=== PATIENT | male | born 1990 | race Caucasian/White ===

== ENCOUNTER 2017-01-10 00:12 | Emergency (ER) | payer OTHER ==
[2017-01-10 00:14] VITALS: BP 123/84; PULSE 78; RESP 16; TEMP 98.4; O2SAT 98
[2017-01-10] MEDS ORDERED: ADDE30TA PO (00:44)
[2017-01-10] MEDS ORDERED: ADDE30XR PO (00:44)
--- NOTE | 2017-01-10 01:02 | PD ---
HPI Chief Complaint: Medical Clearance Time Seen by Provider: 01:01 Travel History International Travel<30 days: No Contact w/Intl Traveler<30days: No Traveled to known affect area: No History of Present Illness HPI 26-year-old white male presents from [facility] for medical clearance for detox. The patient states that he has chronic groin pain from a service related injury. He has undergone orchiopexy. He states that he has distanced himself from the [facility] over the past year. He self medicates his pain with by mouth oxycodone and IV Dilaudid. He also states that he takes Xanax for anxiety. He states that all these medications are purchased off the street. He states that he would like to get into detox for his Xanax abuse. He denies any fever chills. No nausea vomiting. No abdominal pain but has chronic groin pain. He denies any suicidal homicidal ideation. There were no beds available at [facility] and he was waiting for a bed to become available when he opted to come in because he just did not feel well. Patient denies any toxic ingestions. [facility] Past Medical History Narrative Medical Chronic groin pain, IV substance abuse, polysubstance abuse ADHD: Yes Immunizations Current: Yes Tetanus Vaccination: < 5 Years Influenza Vaccination: Yes Past Surgical History Narrative Surgical Orchiopexy Genitourinary Surgery: Yes (DIVISIONS OF RIGHT CREMASTER MUSCLE, RIGHT TESTEE SEWED TO SCROTUM) Social History Alcohol Use: Yes (RARE) Tobacco Use: Yes Substance Use: Yes (OXYCODONE, HYDROMORPHONE, ALPRAZOLAM) Allergies-Medications (Allergen,Severity, Reaction): Coded Allergies: No Known Allergies (Unverified , 01/10/17) Reported Meds & Prescriptions Reported Meds & Active Scripts Active Reported Adderall Xr 24 HR (Amphetamine/Dextroamphetamine) 30 Mg Cap 30 Mg PO DAILY Once daily in the morning. Adderall (Amphetamine-Dextroamphetamine) 30 Mg Tab 30 Mg PO BID Avoid late evening doses. Space doses at least 4 to 6 hours if more than once/day dosing. Review of Systems Except as stated in HPI: all other systems reviewed are Neg Physical Exam Narrative GENERAL: Well-nourished, well-developed patient. SKIN: Warm and dry. HEAD: Normocephalic and atraumatic. EYES: No scleral icterus. No injection or drainage. ENT: No nasal drainage noted. Mucous membranes pink. Airway patent. NECK: Supple, trachea midline. Moves head freely without obvious discomfort. CARDIOVASCULAR: Regular rate and rhythm without murmurs, gallops, or rubs. RESPIRATORY: Breath sounds equal bilaterally. No accessory muscle use. GASTROINTESTINAL: Abdomen soft, non-tender, nondistended. EXTREMITIES: No cyanosis or edema. BACK: Nontender without obvious deformity. No CVA tenderness. GENITOURINARY: Circumcised. Testes descended bilaterally without evidence of rotation. No lesions or erythema. No urethral discharge. NEURO: Patient is alert and oriented. no sensorimotor deficits. Nonfocal. Normal speech. PSYCH: No delusions. No auditory or visual hallucinations. Data Data Last Documented VS Vital Signs Date Time Temp Pulse Resp B/P Pulse Ox O2 Delivery O2 Flow Rate FiO2 01/10/17 00:14 98.4 78 16 123/84 98 Orders Complete Blood Count With Diff (01/10/17 00:34) Comprehensive Metabolic Panel (01/10/17 00:34) Psych Screen (01/10/17 00:34) Drug Screen, Random Urine (01/10/17 00:34) Alcohol (Ethanol) (01/10/17 00:34) Labs Laboratory Tests Test 01/10/17 01:00 White Blood Count 4.8 TH/MM3 Red Blood Count 5.01 MIL/MM3 Hemoglobin 14.4 GM/DL Hematocrit 41.1 % Mean Corpuscular Volume 82.0 FL Mean Corpuscular Hemoglobin 28.8 PG Mean Corpuscular Hemoglobin 35.1 % Concent Red Cell Distribution Width 13.3 % Platelet Count 199 TH/MM3 Mean Platelet Volume 8.1 FL Neutrophils (%) (Auto) 36.6 % Lymphocytes (%) (Auto) 49.0 % Monocytes (%) (Auto) 10.1 % Eosinophils (%) (Auto) 3.6 % Basophils (%) (Auto) 0.7 % Neutrophils # (Auto) 1.8 TH/MM3 Lymphocytes # (Auto) 2.4 TH/MM3 Monocytes # (Auto) 0.5 TH/MM3 Eosinophils # (Auto) 0.2 TH/MM3 Basophils # (Auto) 0.0 TH/MM3 CBC Comment DIFF FINAL Differential Comment Sodium Level 142 MEQ/L Potassium Level 4.0 MEQ/L Chloride Level 105 MEQ/L Carbon Dioxide Level 33.7 MEQ/L Anion Gap 3 MEQ/L Blood Urea Nitrogen 8 MG/DL Creatinine 0.83 MG/DL Estimat Glomerular Filtration 111 ML/MIN Rate Random Glucose 79 MG/DL Calcium Level 8.7 MG/DL Total Bilirubin 0.7 MG/DL Aspartate Amino Transf 67 U/L (AST/SGOT) Alanine Aminotransferase 90 U/L (ALT/SGPT) Alkaline Phosphatase 74 U/L Total Protein 7.5 GM/DL Albumin 3.9 GM/DL Urine Opiates Screen POS Urine Barbiturates Screen NEG Urine Amphetamines Screen POS Urine Benzodiazepines Screen POS Urine Cocaine Screen POS Urine Cannabinoids Screen NEG Ethyl Alcohol Level LESS THAN 3 MG/DL MDM Medical Decision Making Medical Screen Exam Complete: Yes Emergency Medical Condition: Yes Medical Record Reviewed: Yes Interpretation(s) Laboratory Tests Test 01/10/17 01:00 White Blood Count 4.8 TH/MM3 Red Blood Count 5.01 MIL/MM3 Hemoglobin 14.4 GM/DL Hematocrit 41.1 % Mean Corpuscular Volume 82.0 FL Mean Corpuscular Hemoglobin 28.8 PG Mean Corpuscular Hemoglobin 35.1 % Concent Red Cell Distribution Width 13.3 % Platelet Count 199 TH/MM3 Mean Platelet Volume 8.1 FL Neutrophils (%) (Auto) 36.6 % Lymphocytes (%) (Auto) 49.0 % Monocytes (%) (Auto) 10.1 % Eosinophils (%) (Auto) 3.6 % Basophils (%) (Auto) 0.7 % Neutrophils # (Auto) 1.8 TH/MM3 Lymphocytes # (Auto) 2.4 TH/MM3 Monocytes # (Auto) 0.5 TH/MM3 Eosinophils # (Auto) 0.2 TH/MM3 Basophils # (Auto) 0.0 TH/MM3 CBC Comment DIFF FINAL Differential Comment Sodium Level 142 MEQ/L Potassium Level 4.0 MEQ/L Chloride Level 105 MEQ/L Carbon Dioxide Level 33.7 MEQ/L Anion Gap 3 MEQ/L Blood Urea Nitrogen 8 MG/DL Creatinine 0.83 MG/DL Estimat Glomerular Filtration 111 ML/MIN Rate Random Glucose 79 MG/DL Calcium Level 8.7 MG/DL Total Bilirubin 0.7 MG/DL Aspartate Amino Transf 67 U/L (AST/SGOT) Alanine Aminotransferase 90 U/L (ALT/SGPT) Alkaline Phosphatase 74 U/L Total Protein 7.5 GM/DL Albumin 3.9 GM/DL Urine Opiates Screen POS Urine Barbiturates Screen NEG Urine Amphetamines Screen POS Urine Benzodiazepines Screen POS Urine Cocaine Screen POS Urine Cannabinoids Screen NEG Ethyl Alcohol Level LESS THAN 3 MG/DL Differential Diagnosis Differential diagnoses: Alcohol intoxication, substance abuse, electrolyte abnormality, malingering Narrative Course I see no emergent medical condition. The patient is here for medical clearance for detox. There are no beds at [facility]. We will attempt to arrange follow-up for detox with another facility. Diagnosis Primary Impression: Polysubstance abuse Additional Impression: Chronic groin pain Qualified Code: R10.30 - Chronic groin pain, unspecified laterality Condition: Stable Eliezer Suarez Jan 10, 2017 01:02
[2017-01-10 01:15] LABS: AUTOMATED NEUTROPHIL # 1.8 TH/MM3 (1.8-7.7); BASOPHIL % 0.7 % (0.0-2.0); EOSINOPHIL # 0.2 TH/MM3 (0-0.4); EOSINOPHIL % 3.6 % (0.0-4.0); HEMATOCRIT 41.1 % (39.0-51.0); HEMO FLAGS DIFF FINAL; LYMPHOCYTE # 2.4 TH/MM3 (1.0-4.8); MEAN CORPUSCULAR HEMOGLOBIN 28.8 PG (27.0-34.0); MEAN CORPUSCULAR HGB CONC 35.1 % (32.0-36.0); MONO % 10.1 % (0.0-8.0); NEUT % 36.6 % (16.0-70.0); PLATELET COUNT 199 TH/MM3 (150-450); RED BLOOD COUNT 5.01 MIL/MM3 (4.50-5.90); RED CELL DISTRIBUTION WIDTH 13.3 % (11.6-17.2); WHITE BLOOD COUNT 4.8 TH/MM3 (4.0-11.0)
[2017-01-10 01:25] LABS: AMPHETAMINE, URINE POS (NEG); BARBITURATES, URINE NEG (NEG); COCAINE, URINE POS (NEG)
[2017-01-10 01:34] LABS: ALT (GPT) 90 U/L (12-78); ANION GAP 3 MEQ/L (5-15); AST (GOT) 67 U/L (15-37); BICARBONATE 33.7 MEQ/L (21.0-32.0); BLOOD UREA NITROGEN 8 MG/DL (7-18); CHLORIDE 105 MEQ/L (98-107); GLOMERULAR FILTRATION RATE 111 ML/MIN (>89); SODIUM (NA) 142 MEQ/L (136-145)
[2017-01-10 01:36] LABS: ALKALINE PHOSPHATASE 74 U/L (45-117); TOTAL BILIRUBIN ADULT 0.7 MG/DL (0.2-1.0)
[2017-01-10 04:32] VITALS: BP 134/61; PULSE 72; RESP 16; O2SAT 96
== END 2017-01-10 10:12 ==
LOC: NEPD 00:12
DX: R10.30 Lower abdominal pain, unspecified (principal); F19.10 Other psychoactive substance abuse, uncomplicated; F11.10 Opioid abuse, uncomplicated
CPT/HCPCS: 80053; 80307; 85025; 99283

== ENCOUNTER 2017-01-27 15:09 | Emergency (ER) | payer OTHER ==
[~2017-01-27] VITALS: Ht 167.6 cm; Wt 90.0 kg
[~2017-01-27 15:09] MED LIST: ADDE30TA PO; ADDE30XR PO
[2017-01-27 15:12] VITALS: BP 136/75; PULSE 101; RESP 18; TEMP 97.9; O2SAT 100
[2017-01-27 18:02] VITALS: BP 127/76; PULSE 84; RESP 22; O2SAT 98
--- NOTE | 2017-01-27 18:06 | PD ---
HPI . right sided groin pain Chief Complaint: Pain: Acute or Chronic Time Seen by Provider: 18:06 Travel History International Travel<30 days: No Contact w/Intl Traveler<30days: No Traveled to known affect area: No History of Present Illness HPI 26 yr old male here with c/o right groin pain due to stepping off a curb. He is concerned because he had prior testicle surgery and he has pain in the same area. He rates the pain as 8/10 without any radiation elsewhere. He has no other complaints. PFSH Past Medical History ADHD: Yes Immunizations Current: Yes Past Surgical History Genitourinary Surgery: Yes (DIVISIONS OF RIGHT CREMASTER MUSCLE, RIGHT TESTEE SEWED TO SCROTUM) Social History Alcohol Use: Yes (RARE) Tobacco Use: Yes Substance Use: No (OXYCODONE, HYDROMORPHONE, ALPRAZOLAM in nursing home house) Allergies-Medications (Allergen,Severity, Reaction): Coded Allergies: No Known Allergies (Unverified , 01/10/17) Reported Meds & Prescriptions Reported Meds & Active Scripts Active Reported Adderall Xr 24 HR (Amphetamine/Dextroamphetamine) 30 Mg Cap 30 Mg PO DAILY Once daily in the morning. Adderall (Amphetamine-Dextroamphetamine) 30 Mg Tab 30 Mg PO BID Avoid late evening doses. Space doses at least 4 to 6 hours if more than once/day dosing. Review of Systems General / Constitutional: No: Fever Eyes: No: Visual changes HENT: No: Headaches Cardiovascular: No: Chest Pain or Discomfort Respiratory: No: Shortness of Breath Gastrointestinal: No: Abdominal Pain Genitourinary: Positive: Other (groin pain ), No: Dysuria Musculoskeletal: No: Pain Skin: No Rash Neurologic: No: Weakness Psychiatric: No: Depression Endocrine: No: Polydipsia Hematologic/Lymphatic: No: Easy Bruising Physical Exam Narrative GENERAL: AAO x 3, no acute distress, Well-nourished, well-developed patient. SKIN: Warm and dry. No visible rashes or bruising. HEAD: Normocephalic and atraumatic. EYES: No scleral icterus. No injection or drainage. ENT: No nasal drainage noted. Mucous membranes pink. Airway patent. NECK: Supple, trachea midline. No JVD. CARDIOVASCULAR: Regular rate and rhythm without murmurs, gallops, or rubs. RESPIRATORY: Breath sounds equal bilaterally. No accessory muscle use. No rhonchi or rales. GASTROINTESTINAL: Abdomen soft, non-tender, nondistended. GENITAL:Savanna RN present, right testicle is normal, no testicular pain, no bulging mass in the pelvis area, no tenderness to touch of area EXTREMITIES: No cyanosis or edema. BACK: No obvious deformity. NEURO: CN II-12 intact, slip cover sewer strength normal b/l, UE and LE 5/5, no focal deficits PSYCH: AAO x 3, normal affect. Data Data Last Documented VS Vital Signs Date Time Temp Pulse Resp B/P Pulse Ox O2 Delivery O2 Flow Rate FiO2 01/27/17 18:02 84 22 127/76 98 Room Air 01/27/17 15:12 97.9 Orders Orphenadrine Inj (Norflex Inj) (01/27/17 18:15) Ketorolac Inj (Toradol Inj) (01/27/17 18:15) MDM Medical Decision Making Medical Screen Exam Complete: Yes Emergency Medical Condition: Yes Medical Record Reviewed: Yes Differential Diagnosis acute on chronic groin pain, pulled muscle, less likely testicular torsion Narrative Course 26 yr old male here with acute on chronic groin pain after stepping off a curb. I do not see any abnormal findings on examination. There is no evidence of testicular torsion, orchitis, epididymitis or other. Toradol and Norflex in the emergency department. Case was discussed with my Attending Dr. Sherman. I advised follow-up with his outpatient provider. Patient verbalized understanding of instructions, questions were answered, and thanked me for their care. I advised them if their condition worsens, please return to the nearest emergency room for further care. Diagnosis Primary Impression: Right groin pain Patient Instructions: General Instructions Additional Instructions: Please follow-up with your primary care provider. Return to the emergency department for any worsening of your condition. Med/Other Pt SpecificInfo: No Change to Meds Disposition: 01 DISCHARGE HOME Condition: Stable Nahomi Self Jan 27, 2017 18:06 Nahomi Self Jan 27, 2017 18:06
[2017-01-27] MEDS ORDERED: KETOROLAC TROMETHAMINE 60 MG/2 ML (IM) VIAL IM ONE (18:15)
[2017-01-27] MEDS ORDERED: ORPHENADRINE INJ 60 MG/2 ML AMP IM ONE (18:15)
== END 2017-01-27 19:18 | disposition home or self-care (01) ==
LOC: NEPD 15:09
DX: R10.31 Right lower quadrant pain (principal); Z72.0 Tobacco use; Z87.438 Personal history of other diseases of male genital organs; Z86.59 Personal history of other mental and behavioral disorders; X58.XXXA Exposure to other specified factors, initial encounter
CPT/HCPCS: 96372; 99284; J1885; J2360

== ENCOUNTER 2017-02-06 19:23 | Emergency (ER) | payer OTHER ==
[2017-02-06 19:25] VITALS: BP 131/84; PULSE 95; RESP 16; TEMP 99.2; O2SAT 96
--- NOTE | 2017-02-06 21:46 | PD ---
HPI Chief Complaint: Medical Clearance Time Seen by Provider: 21:34 Travel History International Travel<30 days: No Contact w/Intl Traveler<30days: No Traveled to known affect area: No History of Present Illness HPI The patient is a 26-year-old male who presents to the emergency department for possible drug ingestion. The patient states he "bummed a cigarette "earlier today and after smoking a cigarette he felt somewhat jittery and agitated. The patient has a history of substance abuse in the past with opiates and benzodiazepines, went to the person at his drug sobriety house who advised he come to the emergency department. The patient thinks he maybe ingested flakka. The patient denies knowingly ingesting any illegal substances including methamphetamines, cocaine, or marijuana. Symptoms are mild to moderate, exacerbated after smoking a cigarette, and mostly self alleviating. The patient states he was nervous earlier with palpitations and "jitteriness", however, most of his symptoms have resolved. PFSH Past Medical History ADHD: Yes Immunizations Current: Yes Past Surgical History Genitourinary Surgery: Yes (DIVISIONS OF RIGHT CREMASTER MUSCLE, RIGHT TESTEE SEWED TO SCROTUM) Social History Alcohol Use: Yes (RARE) Tobacco Use: Yes Substance Use: No (OXYCODONE, HYDROMORPHONE, ALPRAZOLAM in [facility]) Allergies-Medications (Allergen,Severity, Reaction): Coded Allergies: No Known Allergies (Unverified , 01/10/17) Reported Meds & Prescriptions Reported Meds & Active Scripts Active Reported Wellbutrin SR 12 HR (Bupropion HCl) 150 Mg Tab 150 Mg PO Q12HR Review of Systems Except as stated in HPI: all other systems reviewed are Neg General / Constitutional: No: Fever Cardiovascular: Positive: Palpitations, No: Chest Pain or Discomfort Respiratory: No: Shortness of Breath Gastrointestinal: No: Nausea, Vomiting Musculoskeletal: No: Weakness, Cramping Neurologic: No: Weakness, Dizziness Psychiatric: Positive: Anxiety, Substance Abuse Physical Exam Narrative GENERAL: Awake, alert, nontoxic-appearing 26-year-old male who appears his stated age and is in no acute respiratory distress. SKIN: Focused skin assessment warm/dry. HEAD: Atraumatic. Normocephalic. EYES: Pupils equal and round. Pupils are 4 mm bilateral and reactive. ENT: No nasal bleeding or discharge. Mucous membranes pink and moist. NECK: Trachea midline. No JVD. CARDIOVASCULAR: Regular rate and rhythm. No murmur appreciated. Heart rate in the 80s. RESPIRATORY: No accessory muscle use. Clear to auscultation. Breath sounds equal bilaterally. MUSCULOSKELETAL: No obvious deformities. No clubbing. No cyanosis. No edema. NEUROLOGICAL: Awake and alert. No obvious cranial nerve deficits. Motor grossly within normal limits. Normal speech. Nonfocal. Oriented 4. Follows commands without difficulty. PSYCHIATRIC: Appropriate mood and affect; insight and judgment normal. Data Data Last Documented VS Vital Signs Date Time Temp Pulse Resp B/P Pulse Ox O2 Delivery O2 Flow Rate FiO2 02/06/17 19:25 99.2 95 16 131/84 96 Room Air Orders Complete Blood Count With Diff (02/06/17 21:34) Comprehensive Metabolic Panel (02/06/17 21:34) Creatine Kinase (Cpk) (02/06/17 21:34) Drug Screen, Random Urine (02/06/17 21:34) Labs Laboratory Tests Test 02/06/17 22:11 White Blood Count 9.8 TH/MM3 Red Blood Count 5.56 MIL/MM3 Hemoglobin 16.2 GM/DL Hematocrit 46.5 % Mean Corpuscular Volume 83.8 FL Mean Corpuscular Hemoglobin 29.1 PG Mean Corpuscular Hemoglobin 34.7 % Concent Red Cell Distribution Width 13.6 % Platelet Count 272 TH/MM3 Mean Platelet Volume 7.6 FL Neutrophils (%) (Auto) 62.2 % Lymphocytes (%) (Auto) 29.9 % Monocytes (%) (Auto) 5.9 % Eosinophils (%) (Auto) 1.4 % Basophils (%) (Auto) 0.6 % Neutrophils # (Auto) 6.1 TH/MM3 Lymphocytes # (Auto) 2.9 TH/MM3 Monocytes # (Auto) 0.6 TH/MM3 Eosinophils # (Auto) 0.1 TH/MM3 Basophils # (Auto) 0.1 TH/MM3 CBC Comment DIFF FINAL Differential Comment Sodium Level 140 MEQ/L Potassium Level 3.9 MEQ/L Chloride Level 105 MEQ/L Carbon Dioxide Level 25.3 MEQ/L Anion Gap 10 MEQ/L Blood Urea Nitrogen 10 MG/DL Creatinine 0.99 MG/DL Estimat Glomerular Filtration 91 ML/MIN Rate Random Glucose 80 MG/DL Calcium Level 9.3 MG/DL Total Bilirubin 0.9 MG/DL Aspartate Amino Transf 68 U/L (AST/SGOT) Alanine Aminotransferase 145 U/L (ALT/SGPT) Alkaline Phosphatase 82 U/L Total Creatine Kinase 97 U/L Total Protein 7.8 GM/DL Albumin 4.1 GM/DL Urine Opiates Screen NEG Urine Barbiturates Screen NEG Urine Amphetamines Screen NEG Urine Benzodiazepines Screen NEG Urine Cocaine Screen NEG Urine Cannabinoids Screen NEG MDM Medical Decision Making Medical Screen Exam Complete: Yes Emergency Medical Condition: Yes Medical Record Reviewed: Yes Interpretation(s) Laboratory Tests Test 02/06/17 22:11 White Blood Count 9.8 TH/MM3 Red Blood Count 5.56 MIL/MM3 Hemoglobin 16.2 GM/DL Hematocrit 46.5 % Mean Corpuscular Volume 83.8 FL Mean Corpuscular Hemoglobin 29.1 PG Mean Corpuscular Hemoglobin 34.7 % Concent Red Cell Distribution Width 13.6 % Platelet Count 272 TH/MM3 Mean Platelet Volume 7.6 FL Neutrophils (%) (Auto) 62.2 % Lymphocytes (%) (Auto) 29.9 % Monocytes (%) (Auto) 5.9 % Eosinophils (%) (Auto) 1.4 % Basophils (%) (Auto) 0.6 % Neutrophils # (Auto) 6.1 TH/MM3 Lymphocytes # (Auto) 2.9 TH/MM3 Monocytes # (Auto) 0.6 TH/MM3 Eosinophils # (Auto) 0.1 TH/MM3 Basophils # (Auto) 0.1 TH/MM3 CBC Comment DIFF FINAL Differential Comment Sodium Level 140 MEQ/L Potassium Level 3.9 MEQ/L Chloride Level 105 MEQ/L Carbon Dioxide Level 25.3 MEQ/L Anion Gap 10 MEQ/L Blood Urea Nitrogen 10 MG/DL Creatinine 0.99 MG/DL Estimat Glomerular Filtration 91 ML/MIN Rate Random Glucose 80 MG/DL Calcium Level 9.3 MG/DL Total Bilirubin 0.9 MG/DL Aspartate Amino Transf 68 U/L (AST/SGOT) Alanine Aminotransferase 145 U/L (ALT/SGPT) Alkaline Phosphatase 82 U/L Total Creatine Kinase 97 U/L Total Protein 7.8 GM/DL Albumin 4.1 GM/DL Urine Opiates Screen NEG Urine Barbiturates Screen NEG Urine Amphetamines Screen NEG Urine Benzodiazepines Screen NEG Urine Cocaine Screen NEG Urine Cannabinoids Screen NEG Differential Diagnosis Differential diagnosis includes substance ingestion, polysubstance abuse, palpitations, rhabdomyolysis. Narrative Course IV was established, labs are drawn and sent, and the patient was placed on cardiac telemetry monitoring and continuous pulse oximetry monitoring. CPK was sent to lab. Routine drug screen was sent to lab. AST nail tear minimally elevated, otherwise labs are unremarkable. Tox screen is negative. The patient may have ingested an unknown substance such as K2 or Flakka. The patient is medically clear for outpatient follow-up. Diagnosis Primary Impression: Palpitations Patient Instructions: General Instructions Additional Instructions: Please provide the patient a copy of his labs at discharge. [facility] with [facility] Return if symptoms worsen or progress. Med/Other Pt SpecificInfo: No Change to Meds Disposition: 01 DISCHARGE HOME Condition: Stable Kit Yoon MD Feb 06, 2017 21:46
[2017-02-06] MEDS ORDERED: BUPR150CR PO (21:57)
[2017-02-06 22:43] LABS: AUTOMATED NEUTROPHIL # 6.1 TH/MM3 (1.8-7.7); BASOPHIL # 0.1 TH/MM3 (0-0.2); BASOPHIL % 0.6 % (0.0-2.0); EOSINOPHIL # 0.1 TH/MM3 (0-0.4); EOSINOPHIL % 1.4 % (0.0-4.0); HEMATOCRIT 46.5 % (39.0-51.0); HEMO FLAGS DIFF FINAL; LYMPH % 29.9 % (9.0-44.0); LYMPHOCYTE # 2.9 TH/MM3 (1.0-4.8); MEAN CELL VOLUME 83.8 FL (80.0-100.0); MEAN CORPUSCULAR HEMOGLOBIN 29.1 PG (27.0-34.0); MEAN CORPUSCULAR HGB CONC 34.7 % (32.0-36.0); MONO % 5.9 % (0.0-8.0); NEUT % 62.2 % (16.0-70.0); PLATELET COUNT 272 TH/MM3 (150-450); RED BLOOD COUNT 5.56 MIL/MM3 (4.50-5.90); RED CELL DISTRIBUTION WIDTH 13.6 % (11.6-17.2); WHITE BLOOD COUNT 9.8 TH/MM3 (4.0-11.0)
[2017-02-06 22:50] LABS: ALT (GPT) 145 U/L (12-78); ANION GAP 10 MEQ/L (5-15); AST (GOT) 68 U/L (15-37); BICARBONATE 25.3 MEQ/L (21.0-32.0); BLOOD UREA NITROGEN 10 MG/DL (7-18); CHLORIDE 105 MEQ/L (98-107); GLOMERULAR FILTRATION RATE 91 ML/MIN (>89); POTASSIUM 3.9 MEQ/L (3.5-5.1); SODIUM (NA) 140 MEQ/L (136-145)
[2017-02-06 22:52] LABS: ALKALINE PHOSPHATASE 82 U/L (45-117); TOTAL BILIRUBIN ADULT 0.9 MG/DL (0.2-1.0)
[2017-02-06 22:58] LABS: CREATINE KINASE 97 U/L (39-308)
[2017-02-06 23:32] LABS: AMPHETAMINE, URINE NEG (NEG); BARBITURATES, URINE NEG (NEG); COCAINE, URINE NEG (NEG)
== END 2017-02-06 23:45 | disposition home or self-care (01) ==
LOC: NEPD 19:23
DX: R00.2 Palpitations (principal); Z72.0 Tobacco use; Z79.899 Other long term (current) drug therapy; Z86.59 Personal history of other mental and behavioral disorders
CPT/HCPCS: 80053; 80307; 82550; 85025; 99283

== ENCOUNTER 2017-02-09 09:59 | Emergency (ER) | payer OTHER ==
[~2017-02-09] VITALS: Ht 172.7 cm; Wt 90.0 kg
[~2017-02-09 09:59] MED LIST changes: -ADDE30TA PO; -ADDE30XR PO; +BUPR150CR PO
[2017-02-09 10:02] VITALS: BP 129/63; PULSE 94; RESP 12; TEMP 98.4; O2SAT 96
[2017-02-09 10:45] VITALS: O2SAT 96
[2017-02-09] MEDS ORDERED: SODIUM CHLOR 0.9% 1000 ML INJ 1,000 ML IV ONE (10:45)
[2017-02-09 12:00] VITALS: BP 118/60; PULSE 85; RESP 18; TEMP 98.4; O2SAT 99
--- NOTE | 2017-02-09 13:19 | PD ---
HPI Chief Complaint: Altered Mental Status Time Seen by Provider: 10:38 Travel History International Travel<30 days: No Contact w/Intl Traveler<30days: No Traveled to known affect area: No History of Present Illness HPI Patient is a 26 year old male who comes in after an overdose. He reports taking benzos and opiates. He also took 100mg of Viagra. He is drowsy, but wakes up. He denies any complaints. [facility] Past Medical History ADHD: Yes Diminished Hearing: No Immunizations Current: Yes Tetanus Vaccination: Unknown Influenza Vaccination: No Past Surgical History Genitourinary Surgery: Yes (DIVISIONS OF RIGHT CREMASTER MUSCLE, RIGHT TESTEE SEWED TO SCROTUM) Social History Alcohol Use: Yes (ONCE A WEEK ) Tobacco Use: Yes (1 PPD) Substance Use: Yes (OPIATES AND BENZOS IV, MARIJUANA, COCAINE ) Allergies-Medications (Allergen,Severity, Reaction): Coded Allergies: No Known Allergies (Unverified , 01/10/17) Reported Meds & Prescriptions Reported Meds & Active Scripts Active Reported Wellbutrin SR 12 HR (Bupropion HCl) 150 Mg Tab 150 Mg PO Q12HR Review of Systems ROS Limitations: Intoxication Physical Exam Narrative GENERAL: Drowsy, but awakens easily, in no acute distress. SKIN: Focused skin assessment warm/dry. HEAD: Atraumatic. Normocephalic. EYES: Pupils equal and round. No scleral icterus. ENT: Mucous membranes pink and moist. NECK: Trachea midline. No JVD. CARDIOVASCULAR: Regular rate and rhythm. No murmur appreciated. RESPIRATORY: No accessory muscle use. Clear to auscultation. Breath sounds equal bilaterally. GASTROINTESTINAL: Abdomen soft, non-tender, nondistended. MUSCULOSKELETAL: No obvious deformities. No clubbing. No cyanosis. No edema. NEUROLOGICAL: Awake and alert. No obvious cranial nerve deficits. Motor grossly within normal limits. Normal speech. PSYCHIATRIC: Appropriate mood and affect; insight and judgment normal. Data Data Last Documented VS Vital Signs Date Time Temp Pulse Resp B/P Pulse Ox O2 Delivery O2 Flow Rate FiO2 02/09/17 16:00 98.4 90 18 125/72 98 Room Air Orders Iv Access Insert/Monitor (02/09/17 10:40) Sodium Chlor 0.9% 1000 Ml Inj (Ns 1000 M (02/09/17 10:45) Oximetry (02/09/17 10:40) Ecg Monitoring (02/09/17 10:40) Electrocardiogram (02/09/17 10:21) MDM Medical Decision Making Medical Screen Exam Complete: Yes Emergency Medical Condition: Yes Medical Record Reviewed: Yes Differential Diagnosis Opiate overdose versus benzo overdose versus dehydration versus alcohol abuse Narrative Course Patient is a 26-year-old male who comes in after a drug overdose. He admits to using different substances last night. He has no complaints at this time. Patient observed in the emergency department on a cardiac and pulse ox monitor. When he was sober, discharged home. He is advised to avoid drug use. Advised drink plenty of fluids. Advised to return to the ED as needed for any worsening symptoms. Diagnosis Primary Impression: Overdose Qualified Code: T50.901A - Overdose, accidental or unintentional, initial encounter Patient Instructions: Adult Overdose (ED), General Instructions Additional Instructions: Avoid drug use. Follow up with a primary care doctor. Seek treatment at [facility] Disposition: 01 DISCHARGE HOME Condition: Stable Lidia Byers MD Feb 09, 2017 13:19
[2017-02-09 14:00] VITALS: BP 120/67; PULSE 80; RESP 18; TEMP 98.4; O2SAT 99
--- NOTE | 2017-02-09 14:41 | EKG ---
Date Performed: 02/09/2017 Time Performed: 10:21:37 PTAGE: 26 years EKG: Sinus rhythm BORDERLINE RIGHT AXIS DEVIATION BORDERLINE ECG NO PREVIOUS TRACING DOCTOR: Kati De León Interpretating Date/Time 02/09/2017 14:39:31
[2017-02-09 16:00] VITALS: BP 125/72; PULSE 90; RESP 18; TEMP 98.4; O2SAT 98
== END 2017-02-09 17:04 | disposition home or self-care (01) ==
LOC: NEPE 09:59
DX: T50.901A Poisoning by unspecified drugs, medicaments and biological substances, accidental (unintentional), initial encounter (principal); R41.82 Altered mental status, unspecified; Y92.9 Unspecified place or not applicable; F17.210 Nicotine dependence, cigarettes, uncomplicated; F90.9 Attention-deficit hyperactivity disorder, unspecified type
CPT/HCPCS: 93005; 96360; 99284; J7030

== ENCOUNTER 2017-02-16 15:28 | Inpatient (IN) | payer OTHER ==
[~2017-02-16] VITALS: Ht 167.6 cm; Wt 88.1 kg
[2017-02-16 16:14] VITALS: BP 116/71; PULSE 89; RESP 16; TEMP 98.1; O2SAT 99
[2017-02-16] MEDS ORDERED: ADDE30XR PO (16:18)
[2017-02-16] MEDS ORDERED: ADDE30TA PO (16:18)
[2017-02-16] MEDS ORDERED: SERO200T PO (16:18)
[2017-02-16 16:46] LABS: AUTOMATED NEUTROPHIL # 3.4 TH/MM3 (1.8-7.7); BASOPHIL # 0.1 TH/MM3 (0-0.2); BASOPHIL % 0.9 % (0.0-2.0); EOSINOPHIL % 0.7 % (0.0-4.0); HEMATOCRIT 46.4 % (39.0-51.0); HEMO FLAGS DIFF FINAL; LYMPH % 31.5 % (9.0-44.0); LYMPHOCYTE # 1.7 TH/MM3 (1.0-4.8); MEAN CELL VOLUME 84.6 FL (80.0-100.0); MEAN CORPUSCULAR HEMOGLOBIN 29.3 PG (27.0-34.0); MEAN CORPUSCULAR HGB CONC 34.6 % (32.0-36.0); MONO % 5.1 % (0.0-8.0); NEUT % 61.8 % (16.0-70.0); PLATELET COUNT 239 TH/MM3 (150-450); RED BLOOD COUNT 5.49 MIL/MM3 (4.50-5.90); RED CELL DISTRIBUTION WIDTH 13.4 % (11.6-17.2); WHITE BLOOD COUNT 5.5 TH/MM3 (4.0-11.0)
[2017-02-16 17:03] LABS: BICARBONATE 23.4 MEQ/L (21.0-32.0)
[2017-02-16 17:05] VITALS: BP 100/64; PULSE 75; RESP 16; O2SAT 99
[2017-02-16 17:19] LABS: ACETAMINOPHEN LESS THAN 2.0 MCG/ML (10.0-30.0)
--- NOTE | 2017-02-16 17:25 | PD ---
HPI Chief Complaint: Psychiatric Symptoms Time Seen by Provider: 17:21 Travel History International Travel<30 days: No Contact w/Intl Traveler<30days: No Traveled to known affect area: No History of Present Illness HPI 26-year-old male that presents to the ED for evaluation of psychiatric illness. Patient was Doherty acted by police after apparently he made suicidal statements. Per patient she is feeling a lot of stress secondary to losing custody of his son secondary to substance abuse. He states suicidal because of this. States that he did drink alcohol today but denies using drugs today. No other medical issues. No allergies to medication. Denies any homicidal ideation. Symptoms appear to have worsened for the past couple days secondary to recent suicidal attempt with viagra. PFSH Past Medical History ADHD: Yes Diminished Hearing: No Immunizations Current: Yes Tetanus Vaccination: < 5 Years Influenza Vaccination: Yes Past Surgical History Genitourinary Surgery: Yes (DIVISIONS OF RIGHT CREMASTER MUSCLE, RIGHT TESTEE SEWED TO SCROTUM) Social History Alcohol Use: Yes (ONCE A WEEK ) Tobacco Use: Yes (1 PPD) Substance Use: Yes (HEROIN IV, MARIJUANA ) Allergies-Medications (Allergen,Severity, Reaction): Coded Allergies: No Known Allergies (Unverified , 02/16/17) Reported Meds & Prescriptions Reported Meds & Active Scripts Active Reported Seroquel (Quetiapine Fumarate) 200 Mg Tab 200 Mg PO DAILY Adderall (Amphetamine-Dextroamphetamine) 30 Mg Tab 30 Mg PO BID Avoid late evening doses. Space doses at least 4 to 6 hours if more than once/day dosing. Adderall Xr 24 HR (Amphetamine/Dextroamphetamine) 30 Mg Cap 30 Mg PO DAILY Once daily in the morning. Wellbutrin SR 12 HR (Bupropion HCl) 150 Mg Tab 150 Mg PO Q12HR Review of Systems Except as stated in HPI: all other systems reviewed are Neg Physical Exam Narrative GENERAL: SKIN: Warm and dry. HEAD: Atraumatic. Normocephalic. EYES: Pupils equal and round. No scleral icterus. No injection or drainage. ENT: No nasal bleeding or discharge. Mucous membranes pink and moist. Tongue is midline. No uvula deviation. NECK: Trachea midline. No JVD. CARDIOVASCULAR: Regular rate and rhythm. No murmurs, S3, S4. RESPIRATORY: No accessory muscle use. Clear to auscultation. Breath sounds equal bilaterally. GASTROINTESTINAL: Abdomen soft, non-tender, nondistended. Hepatic and splenic margins not palpable. MUSCULOSKELETAL: Extremities without clubbing, cyanosis, or edema. No obvious deformities. Full range of motion of the upper and lower extremities bilaterally. 2+ pulses bilaterally. NEUROLOGICAL: Awake and alert. No obvious cranial nerve deficits. Motor grossly within normal limits. Five out of 5 muscle strength in the arms and legs. Normal speech. PSYCHIATRIC: Appropriate mood and affect; insight and judgment normal. Data Data Last Documented VS Vital Signs Date Time Temp Pulse Resp B/P Pulse Ox O2 Delivery O2 Flow Rate FiO2 02/16/17 17:05 75 16 100/64 99 Room Air 02/16/17 16:14 98.1 Orders Complete Blood Count With Diff (02/16/17 15:54) Basic Metabolic Panel (Bmp) (02/16/17 15:54) Drug Screen, Random Urine (02/16/17 15:54) Alcohol (Ethanol) (02/16/17 15:58) Salicylates (Aspirin) (02/16/17 15:58) Tylenol (Acetaminophen) (02/16/17 15:58) Labs Laboratory Tests Test 02/16/17 16:00 White Blood Count 5.5 TH/MM3 Red Blood Count 5.49 MIL/MM3 Hemoglobin 16.1 GM/DL Hematocrit 46.4 % Mean Corpuscular Volume 84.6 FL Mean Corpuscular Hemoglobin 29.3 PG Mean Corpuscular Hemoglobin 34.6 % Concent Red Cell Distribution Width 13.4 % Platelet Count 239 TH/MM3 Mean Platelet Volume 8.0 FL Neutrophils (%) (Auto) 61.8 % Lymphocytes (%) (Auto) 31.5 % Monocytes (%) (Auto) 5.1 % Eosinophils (%) (Auto) 0.7 % Basophils (%) (Auto) 0.9 % Neutrophils # (Auto) 3.4 TH/MM3 Lymphocytes # (Auto) 1.7 TH/MM3 Monocytes # (Auto) 0.3 TH/MM3 Eosinophils # (Auto) 0.0 TH/MM3 Basophils # (Auto) 0.1 TH/MM3 CBC Comment DIFF FINAL Differential Comment Sodium Level 142 MEQ/L Potassium Level 4.0 MEQ/L Chloride Level 109 MEQ/L Carbon Dioxide Level 23.4 MEQ/L Anion Gap 10 MEQ/L Blood Urea Nitrogen 6 MG/DL Creatinine 0.93 MG/DL Estimat Glomerular Filtration 97 ML/MIN Rate Random Glucose 80 MG/DL Calcium Level 8.7 MG/DL Salicylates Level 1.9 MG/DL Acetaminophen Level LESS THAN 2.0 MCG/ML Ethyl Alcohol Level 89 MG/DL MDM Medical Decision Making Medical Screen Exam Complete: Yes Emergency Medical Condition: Yes Medical Record Reviewed: Yes Interpretation(s) CBC & BMP Diagram 02/16/17 16:00 alcohol in the 80s Differential Diagnosis Depression versus suicidal ideation versus anxiety versus adjustment disorder versus mood disorder versus bipolar disorder versus schizophrenia versus paranoid disorder versus psychosis versus substance abuse versus alcohol abuse versus alcohol induced psychosis versus homicidality addition versus cutting versus personality disorder Narrative Course 26-year-old male that presents to the ED for evaluation of psych. Patient was properly examined and was found to have signs and symptoms consistent with psychiatric illness. No sign of acute medical distress. Labs were drawn. Patient was medically clear. Okay to be seen by psych. Mental health screening was discussed with the patient. Diagnosis Primary Impression: Polysubstance abuse Zuhair Kelly Feb 16, 2017 17:25
[2017-02-16 18:22] VITALS: BP 119/62; PULSE 89; RESP 20; O2SAT 97
[2017-02-16 21:59] VITALS: BP 110/55; PULSE 74; RESP 18; O2SAT 97
[2017-02-17] MEDS ORDERED: BENZTROPINE MESYLATE 2 MG/2 ML VIAL IM PRN
[2017-02-17] MEDS ORDERED: LORazepam 1 MG TAB PO PRN
[2017-02-17] MEDS ORDERED: FLUMAZENIL 0.5 MG/5 ML VIAL IV PUSH PRN
[2017-02-17] MEDS ORDERED: LORazepam 2 MG TAB PO PRN
[2017-02-17] MEDS ORDERED: LORazepam 2 MG/ML VIAL IV PUSH PRN ×4
[2017-02-17] MEDS ORDERED: BENZTROPINE MESYLATE 1 MG TAB PO PRN
[2017-02-17] MEDS ORDERED: MAGNESIUM HYDROXIDE SUSP 30 ML CUP PO PRN
[2017-02-17] MEDS ORDERED: ACETAMINOPHEN 325 MG TAB PO PRN
[2017-02-17] MEDS ORDERED: ALUMINUM/MAGNESIUM/SIMETH 30 ML CUP PO PRN
[2017-02-17 02:20] VITALS: BP 118/69; PULSE 57; RESP 16; TEMP 98.3; O2SAT 100
[2017-02-17 06:14] VITALS: BP 107/58; PULSE 63; RESP 16; TEMP 98.1; O2SAT 100
[2017-02-17] MEDS: REMOVE OLD PATCH T-DERMAL SCH (09:00)
[2017-02-17 12:17] LABS: ALKALINE PHOSPHATASE 69 U/L (45-117); ALT (GPT) 162 U/L (12-78); ANION GAP 8 MEQ/L (5-15); AST (GOT) 107 U/L (15-37); BICARBONATE 29.3 MEQ/L (21.0-32.0); BLOOD UREA NITROGEN 9 MG/DL (7-18); CHLORIDE 106 MEQ/L (98-107); FREE T4 1.33 NG/DL (0.76-1.46); GLOMERULAR FILTRATION RATE 88 ML/MIN (>89); HDL CHOLESTEROL 29.7 MG/DL (40.0-60.0); LDL CHOLESTEROL 53 MG/DL (0-99); POTASSIUM 5.1 MEQ/L (3.5-5.1); SODIUM (NA) 143 MEQ/L (136-145); TOTAL BILIRUBIN ADULT 0.9 MG/DL (0.2-1.0)
[2017-02-17] MEDS: buPROPion HCL 100 MG TAB PO SCH ×2 (13:18→21:57)
[2017-02-17] MEDS: NICOTINE 21 MG/24 HR PATCH T-DERMAL SCH (13:32)
[2017-02-17 17:07] LABS: HEMOGLOBIN A1b 0.8 %; HEMOGLOBIN Ao 87.1 %; HEMOGLOBIN F 0.8 %; HEMOGLOBIN LA1C 1.7 %; HEMOGLOBIN P3 3.1 %
[2017-02-17 19:27] VITALS: BP 125/68; PULSE 66; RESP 18; TEMP 97.6; O2SAT 97
--- NOTE | 2017-02-17 19:34 | HHI.HP ---
Provisional Diagnosis Admission Date Feb 16, 2017 at 23:56 Jordan I. Adjustment disorder with depressed mood, rule out alcohol induced depressed mood , opiate use disorder in early remission Jordan II. Deferred Jordan III. Denies Jordan IV. Chemical dependence, limited social support Jordan V. 40 Certification of Person's Competence To Provide Express and Informed Consent I have personally examined Pako Hebert , a person being served at [facility] on, Feb 17, 2017 19:28. Express and informed consent means consent voluntarily given in writing, by a competent person, after sufficient explanation and disclosure of the subject matter involved to enable the person to make a knowing and willful decision without any element of force, fraud, deceit, duress, or other form of constraint or coercion. This person is 18 years of age or older, is not now known to be incompetent to consent to treatment with a guardian advocate, and does not have a health care surrogate or proxy currently making medical treatment decisions. I have found this person to be one of the following: [x] Competent to provide express and informed consent, as defined above, for voluntary admission to this facility and is competent to provide express and informed consent for treatment. He/she has the consistent capacity to make well reasoned, willful, and knowing decisions concerning his or her medical or mental health treatment. The person fully and consistently understands the purpose of the admission for examination/placement and is fully capable of personally exercising all rights assured under [place] [] Incompetent to provide express and informed consent to voluntary admission, and this is incompetent to provide express and informed consent to treatment. The person must be transferred to involuntary status and a petition for a guardian advocate filed with the Circuit Court. [] Refusing to provide express and informed consent to voluntary admission but is competent to provide express and informed consent for treatment. The person must be discharged or transferred to involuntary status. Form shall be completed within 24 hours of a person's arrival at the receiving facility and filed in the clinical record of each person: 1. Admitted on a voluntary basis 2. Permitted to provide express and informed consent to his/her own treatment 3. Allowed to transfer from involuntary to voluntary status 4. Prior to permitting a person to consent to his or her own treatment after having been previously found incompetent to consent to treatment. History of Present Illness Capacity: Has Capacity HPI Patient is a 26-year-old man, currently , has 1 son in the custody of his parents, recently domiciled in a long term house called [email or web address] by the [facility] recently [facility] from [facility], past psychiatric history of self reported ADHD and anxiety, no previous psychiatric hospitalizations, no previous suicide attempts or self-injurious behavior, no significant past medical history, history of prescription opiate use disorder, 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 As per ED note patient had reported feeling stressed secondary to losing custody of his son due to his substance use and had reported feeling suicidal because of this. Patient in the ED reported having drank alcohol but denied using any drugs. Patient was subsequently transferred to the inpatient psychiatric unit for evaluation and treatment. Patient was seen walking around the unit and able to engage in interview was noted to be calm and cooperative. Patient states that he was brought to the hospital after an argument with his and stated someone called 91 and had reported that he was stating feeling suicidal in which she was brought in by police for evaluation. Patient stated he is currently in recovery was recently at a long term house called [email or web address] by the [facility], but had recently lied to the program stating he relapsed and was therefore discharged. Patient states that he did not relapse on substances but simply lied to be elevated discharged from the facility so that he can spend a couple of days with his current at a hotel where she stays denies it was a bad idea. Patient states that he would like to regain custody of his son and states that he can only do that if he completes his program for recovery and plans to go back to do so. Patient states daily he has been sleeping well good appetite, scattered concentration but did denies feeling depressed or having suicidal ideations at this time. Patient denies any manic or psychotic symptoms. Patient states that he is motivated to complete his recovery. Patient states he likely discharge since that he can return to the program. Past psychiatric history patient was of reported ADHD and anxiety disorder, no previous hospitalizations, no previous suicide attempts or self-injurious behavior of aspirin a note it was stated patient had a suicide attempt via overdose with Viagra which needs to be explored. Patient with no current outpatient provider but states that he is connected with the [place] and has an appointment to see him until provider soon. Patient states that he had previously been on Seroquel (last taken 1 month ago), Ambien, Klonopin, Ativan ( last taken 2-3 weeks ago), Wellbutrin (last taken one week ago), Adderall. Patient denies any history of abuse. Family psychiatric history: Sr. with PTSD, no completed suicides in the family. Since use history history of opiate use for 1 year, reports being in recovery since January of this year at [email or web address] by the [facility] but left a days ago after being discharged and stated in history of present illness. Reports occasional alcohol use last drink was yesterday with alcohol level of 89 as per labs. Marijuana use about half a joint, last use was a couple of days ago. No previous rehabilitation programs, to previous detox in the past. Past medical history: Denies Allergies: NKDA Social history: , has 1 son in the custody of his parents, recently discharged from [email or web address] by the [facility], eyes education is GED, was a for 3-1/2 years and discharged due to injury, currently connected to the [place], [employer]ism [employer]. Review of Systems Except as stated in HPI: all other systems reviewed are Neg Past Psych History Psychological trauma history Denies Violence risk - others (6 mos) Low Violence risk - self (6 mos) Low to moderate Substance Abuse History Drugs/Alcohol past 12 months History of opiate use disorder for a year, currently in recovery since January, unclear if patient relapsed but denies at this time. History of occasional alcohol use, but recently used yesterday and reports half a beer., Marijuana use last use was a couple of days ago. History of 2 prior detox, denies any previous rehabilitation programs. Past Family Social History Coded Allergies: No Known Allergies (Unverified , 02/16/17) Reported Medications Quetiapine (Seroquel)200 Mg Dec116 Mg PO DAILY #30 TAB Ref 0 02/16/17 Amphetamine-Dextroamphetamine (Adderall)30 Mg Tab30 Mg PO BID #60 TAB Ref 0 Avoid late evening doses. Space doses at least 4 to 6 hours if more than once/day dosing. 02/16/17 Amphetamine-Dextroamphetamine ER 24 HR (Adderall Xr 24 HR)30 Mg Cap30 Mg PO DAILY #30 CAP Ref 0 Once daily in the morning. 02/16/17 Bupropion HCl ER 12 HR (Wellbutrin SR 12 HR)150 Mg [id number] Mg PO Q12HR Ref 0 02/06/17 Current Medications Medications (Trade) Dose Ordered Sig/Evaristo Route Start Time Stop Time Status Last Admin (Romazicon Inj) 0.2 mg Q1M PRN IV PUSH 02/17/17 00:00 (Ativan) 1 mg Q4H PRN PO 02/17/17 00:00 (Ativan Inj) 1 mg Q4H PRN IV PUSH 02/17/17 00:00 (Ativan) 2 mg Q2H PRN PO 02/17/17 00:00 (Ativan Inj) 2 mg Q2H PRN IV PUSH 02/17/17 00:00 (Ativan Inj) 2 mg Q1H PRN IV PUSH 02/17/17 00:00 (Ativan Inj) 2 mg Q15M PRN IV PUSH 02/17/17 00:00 (Benadryl) 50 mg HS PRN PO 02/17/17 00:00 (Tylenol) 650 mg Q4H PRN PO 02/17/17 00:00 02/17/17 14:28 (Milk Of Magnesia Liq) 30 ml DAILY PRN PO 02/17/17 00:00 (Mag-Al Plus Susp Liq) 30 ml Q6H PRN PO 02/17/17 00:00 (Habitrol 21 Mg Patch.24 Hr) 1 patch DAILY T-DERMAL 02/17/17 09:00 02/17/17 13:32 (Atarax) 50 mg Q6H PRN PO 02/17/17 00:00 (Cogentin) 1 mg Q12H PRN PO 02/17/17 00:00 (Cogentin Inj) 1 mg Q12H PRN IM 02/17/17 00:00 Miscellaneous Information 1 DAILY T-DERMAL 02/17/17 09:00 (Pneumovax-23 Inj) 25 mcg ONCE ONCE IM 02/18/17 10:00 02/18/17 10:01 (Wellbutrin) 100 mg Q12HR PO 02/17/17 12:45 02/17/17 13:18 Family History Sister with PTSD, denies any completed suicides in the family. Social History , has 1 son in the custody of his parents, recently discharged from [employer] [facility]. Eyes education is GED. , 3 /2 years of service discharge after [facility], [facility]. [employer] is [employer] Patient's Strengths (min. 2) Verbal and communicative Physical Exam On my examination today, the patient appears to be in no acute physical distress. Normal gait with no motor abnormalities noted. No psychomotor agitation or retardation noted. Labs and vitals reviewed. Vital Signs Vital Signs Date Time Temp Pulse Resp B/P Pulse Ox O2 Delivery O2 Flow Rate FiO2 02/17/17 19:27 97.6 66 18 125/68 97 02/16/17 21:59 Room Air I/O 02/16/17 02/16/17 02/17/17 08:00 16:00 00:00 Intake Total 80 ml Balance 80 ml Lab Results Labs reviewed. Laboratory Tests Test 02/16/17 02/17/17 16:00 10:38 Chloride Level 109 MEQ/L (98-107) Blood Urea Nitrogen 6 MG/DL (7-18) Salicylates Level 1.9 MG/DL (2.8-20.0) Acetaminophen Level LESS THAN 2.0 MCG/ML (10.0-30.0) Ethyl Alcohol Level 89 MG/DL (0-5) Estimat Glomerular Filtration 88 ML/MIN (>89) Rate Aspartate Amino Transf 107 U/L (15-37) (AST/SGOT) Alanine Aminotransferase 162 U/L (12-78) (ALT/SGPT) Cholesterol Level 100 MG/DL (120-200) HDL Cholesterol 29.7 MG/DL (40.0-60.0) Thyroid Stimulating Hormone 0.342 uIU/ML 3rd Gen (0.358-3.740) Mental Status Examination Appearance Patient appears stated age, wearing casual clothing, overweight, fair hygiene and grooming, calm and cooperative in interview. Speech: Unremarkable Orientation: x3 Memory: Unremarkable Thought Process: Logical, Organized Thought Content: Unremarkable Language Fluid and spontaneous Fund of Knowledge Average Hallucination Type: None Attention and Concentration: Good Suicidal Ideation: No (none at time of interview) Previous Suicide Attempts: No (denied by patient but as per ED note a reported suicide attempt via overdose with Viagra (unclear at this time) () Homicidal Ideation: No Previous Homicide Attempts: No Insight: Fair Judgment: Poor Affect: Euthymic Mood: Appropriate Assessment & Plan Problem List: (1) Adjustment disorder with depressed mood ICD Code: F43.21 Assessment & Plan Estimated LOS: 5-7 days. Patient at this time denies any depressive symptoms, currently in the process of recovery from substance use, with having left the program recently and now looking to get back there. As per ED note patient had reported suicidal ideations in the context of alcohol intoxication as well as a noted recent suicide attempt via overdose with Viagra which patient had reported no previous suicide attempts and will continue to be explored. Collaterals pending from the and she was present during initiation of Doherty act recently. Patient currently will be admitted under voluntary status. Patient will be restarted on Wellbutrin 100 mg by mouth twice a day, monitor for medication response and adverse drug reactions. Discharge planning in progress Discharge Planning In progress Thiago Glynn MD Feb 17, 2017 19:34
[2017-02-17] MEDS: diphenhydrAMINE HCL 50 MG CAP PO PRN (21:59)
[2017-02-18 05:17] VITALS: BP 105/59; PULSE 58; RESP 18; TEMP 98; O2SAT 99
[2017-02-18] MEDS: REMOVE OLD PATCH T-DERMAL SCH (09:00)
[2017-02-18] MEDS: buPROPion HCL 100 MG TAB PO SCH ×2 (09:27→21:32)
[2017-02-18] MEDS: NICOTINE 21 MG/24 HR PATCH T-DERMAL SCH (09:27)
[2017-02-18] MEDS ORDERED: INFLUENZA VIRUS VACCINE (QUADRIVALENT) 0.5 ML SYR IM ONE (10:00)
[2017-02-18] MEDS ORDERED: PNEUMOCOCCAL POLYVALENT INJ 25 MCG/0.5 ML SYR IM ONE (10:00)
[2017-02-18] MEDS: hydrOXYzine HCL 50 MG TAB PO PRN (15:14)
[2017-02-18 18:27] VITALS: BP 116/71; PULSE 73; RESP 17; TEMP 99; O2SAT 99
[2017-02-18] MEDS: diphenhydrAMINE HCL 50 MG CAP PO PRN (21:32)
--- NOTE | 2017-02-18 22:06 | HHI.PYPN ---
Subjective Remarks Pt seen and discussed with staff. He is tolerating medication without side effects. He denies SI/HI but admits to drug use, stating that he relapsed with cannabis, alcohol and benzodiazepines. He expresses desire to get back into [facility]. Insight into substance abuse is limited. He reports continued depression and anxiety. Objective Alert: Yes [place]: Person, Place, Date, Situation Mood: Calm Affect: Restricted Memory Intact: Immediate, Recent, Remote Hallucinations: Other (denies) Delusions: No Delusion Type: Other (none) Suicidal: Ideation (denies) Homicidal: Ideation (enies) Insight/Judgment poor Vitals/IOs Vital Signs Date Time Temp Pulse Resp B/P Pulse Ox O2 Delivery O2 Flow Rate FiO2 02/18/17 18:27 99.0 73 17 116/71 99 02/16/17 21:59 Room Air Assessment & Plan Problem List: (1) Adjustment disorder with depressed mood ICD Code: F43.21 Assessment & Plan Continue current tx plan. Estimated LOS: days Justification for Cont. Inpt. monitoring for safety Lalitha Tolbert MD Feb 18, 2017 22:06
[2017-02-19 06:21] VITALS: BP 103/55; PULSE 55; RESP 18; TEMP 98.4; O2SAT 98
[2017-02-19] MEDS: buPROPion HCL 100 MG TAB PO SCH ×2 (08:43→22:02)
[2017-02-19] MEDS: NICOTINE 21 MG/24 HR PATCH T-DERMAL SCH (09:00)
[2017-02-19] MEDS: REMOVE OLD PATCH T-DERMAL SCH (09:00)
[2017-02-19] MEDS: hydrOXYzine HCL 50 MG TAB PO PRN (14:25)
--- NOTE | 2017-02-19 15:05 | HHI.PYPN ---
Subjective Remarks Pt seen and discussed with staff. He has been medication compliant. No side effects. He denies SI/HI. He has been somewhat withdrawn on unit today. He states that he was having anxiety earlier this morning but it has improved as day progressed. He states that he has been contemplating substance abuse tx options. No SI/HI. Objective Alert: Yes [place]: Person, Place, Date, Situation Mood: Calm Affect: Restricted Memory Intact: Immediate, Recent, Remote Hallucinations: Other (denies) Delusions: No Delusion Type: Other (none) Suicidal: Ideation (denies) Homicidal: Ideation (enies) Insight/Judgment fair Vitals/IOs Vital Signs Date Time Temp Pulse Resp B/P Pulse Ox O2 Delivery O2 Flow Rate FiO2 02/19/17 06:21 98.4 55 18 103/55 98 02/16/17 21:59 Room Air Assessment & Plan Problem List: (1) Adjustment disorder with depressed mood ICD Code: F43.21 Assessment & Plan Pt improving. Continue current tx plan. Estimated LOS: days Justification for Cont. Inpt. risk of decompensation. monitoring for safety Lalitha Tolbert MD Feb 19, 2017 15:05
[2017-02-19 18:24] VITALS: BP 125/74; PULSE 66; RESP 18; TEMP 98.1; O2SAT 98
[2017-02-19] MEDS: diphenhydrAMINE HCL 50 MG CAP PO PRN (22:01)
[2017-02-20 06:00] VITALS: BP 113/67; PULSE 66; RESP 18; TEMP 97.5; O2SAT 99
[2017-02-20] MEDS: REMOVE OLD PATCH T-DERMAL SCH (09:00)
[2017-02-20] MEDS: NICOTINE 21 MG/24 HR PATCH T-DERMAL SCH (09:00)
[2017-02-20] MEDS: buPROPion HCL 100 MG TAB PO SCH (09:10)
[2017-02-20] MEDS: hydrOXYzine HCL 50 MG TAB PO PRN (11:17)
[2017-02-20] MEDS ORDERED: BUPR100T4 PO (13:04)
--- NOTE | 2017-02-20 15:52 | HHI.DS ---
Psychiatry Discharge Summary Inpatient Psychiatric care?: Yes Advance Directive: No Reason Not Provided: Due to Patient Condition Mental Health AdvanceDirective: No Health Care Proxy: No Admission Admission Date Feb 16, 2017 at 23:56 Admission Diagnosis: (1) Adjustment disorder with depressed mood ICD Code: F43.21 Brief History Patient is a 26-year-old man, currently , has 1 son in the custody of his parents, recently domiciled in a senior living house called [facility] by the [facility] recently [facility] from the [facility], past psychiatric history of self reported ADHD and anxiety, no previous psychiatric hospitalizations, no previous suicide attempts or self-injurious behavior, no significant past medical history, history of prescription opiate use disorder, 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 As per ED note patient had reported feeling stressed secondary to losing custody of his son due to his substance use and had reported feeling suicidal because of this. Patient in the ED reported having drank alcohol but denied using any drugs. Patient was subsequently transferred to the inpatient psychiatric unit for evaluation and treatment. Patient was seen walking around the unit and able to engage in interview was noted to be calm and cooperative. Patient states that he was brought to the hospital after an argument with his and stated someone called 91 and had reported that he was stating feeling suicidal in which she was brought in by police for evaluation. Patient stated he is currently in recovery was recently at a senior living house called [facility] by the [facility], but had recently lied to the program stating he relapsed and was therefore discharged. Patient states that he did not relapse on substances but simply lied to be elevated discharged from the facility so that he can spend a couple of days with his current at a hotel where she stays denies it was a bad idea. Patient states that he would like to regain custody of his son and states that he can only do that if he completes his program for recovery and plans to go back to do so. Patient states daily he has been sleeping well good appetite, scattered concentration but did denies feeling depressed or having suicidal ideations at this time. Patient denies any manic or psychotic symptoms. Patient states that he is motivated to complete his recovery. Patient states he likely discharge since that he can return to the program. Past psychiatric history patient was of reported ADHD and anxiety disorder, no previous hospitalizations, no previous suicide attempts or self-injurious behavior of aspirin a note it was stated patient had a suicide attempt via overdose with Viagra which needs to be explored. Patient with no current outpatient provider but states that he is [facility] with [facility] and has an appointment to see him until provider soon. Patient states that he had previously been on Seroquel (last taken 1 month ago), Ambien, Klonopin, Ativan ( last taken 2-3 weeks ago), Wellbutrin (last taken one week ago), Adderall. Patient denies any history of abuse. Family psychiatric history: Sr. with PTSD, no completed suicides in the family. Since use history history of opiate use for 1 year, reports being in recovery since January of this year at [facility] by the [facility] but left a days ago after being discharged and stated in history of present illness. Reports occasional alcohol use last drink was yesterday with alcohol level of 89 as per labs. Marijuana use about half a joint, last use was a couple of days ago. No previous rehabilitation programs, to previous detox in the past. Past medical history: Denies Allergies: NKDA Social history: , has 1 son in the custody of his parents, recently discharged from [facility] by the [facility] program, eyes education is GED, was a for 3-1/2 years and discharged due to injury, currently connected to the [facility], mormonism [employer]. Tobacco Use In Past 30 Days: 5 or More Cigarettes/Day Alcohol Use: 2-4 Times Per Month Hospital Course Patient is a 26-year-old man, currently , has 1 son in the custody of his parents, recently domiciled in a senior living house called [facility] by the [facility] recently discharged from the facility, connected to the [facility], past psychiatric history of self reported ADHD and anxiety, no previous psychiatric hospitalizations, no previous suicide attempts or self-injurious behavior, no significant past medical history, history of prescription opiate use disorder, 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 Patient upon admission denied any depressive symptoms, admitted to current recovery from substance use and having left program recently looking to return and was started on bupropion 100 mg by mouth twice a day for depression. While on the unit patient continued to reports stable mood, denied any depressive symptoms and was future oriented to returning to program and life goals of being on regaining custody of his son back from his parents. Patient on day of discharge was noted to be cheerful, and future oriented stating that he is willing to return to his previous substance abuse program and to completed. He states that he feels 100% about participating his rehabilitation program for himself. Patient remains to be hopeful, future oriented, and states that he is living for himself and his family and states that he wants to continue to be a successful person in his life. Patient at this time denies any depressive manic or psychotic symptoms, denies any suicidality, homicidality, any perceptual disturbances or delusions. Patient will be discharged back to rehabilitation program [facility] the [facility], advised to continue current medication regimen and to adhere to outpatient follow-up for cognitive care. Patient advised to call now 911 or go to nearest ED case of emergency. Patient agrees with plan. Results Blood Pressure 113 / 67 Vital Signs Date Time Temp Pulse Resp B/P Pulse Ox O2 Delivery O2 Flow Rate FiO2 02/20/17 06:00 97.5 66 18 113/67 99 02/16/17 21:59 Room Air Laboratory Results Test 02/17/17 10:38 Hemoglobin A1c 4.8 % (4.3-6.0) Triglycerides Level 89 MG/DL (42-150) Cholesterol Level 100 MG/DL (120-200) LDL Cholesterol 53 MG/DL (0-99) HDL Cholesterol 29.7 MG/DL (40.0-60.0) Summary of Procedures None Pending results at discharge: No Medications # of Antipsychotic meds at D/C: 0 Approp Antipsych med options 1 - Minimum of three failed multiple trials of monotherapy. 2 - Documented plan to taper to monotherapy due to previous use of multiple meds OR cross-taper in progress at D/C. 3 - Documentation of augmentation of Clozapine. 4 - Justification other than those listed in allowable values 1-3, document here : Discharge Discharge Date: Feb 20, 2017 Discharge Diagnosis: (1) Adjustment disorder with depressed mood Diagnosis: Principal ICD Code: F43.21 Mental Status Exam at Disch Patient appears stated age, casual clothing, calm and cooperative with interview. Fair eye contact, normal gait, speech normal rate tone and prosody, mood: "Great", affect euthymic, thought process linear, future oriented, thought content denies SI, HI, AVH or delusions. Fair insight, impulse control , and judgment. Language fluid and spontaneous. Alert and oriented 3 Pt Condition on Discharge: Fair Discharge Disposition: Discharge Home Discharge Instructions Diet Instructions: As Tolerated, No Restrictions Activities you can perform: Regular-No Restrictions Scheduled Appointment: [place] Appointment Date: Feb 21, 2017 Appointment Time: 1:00 Discharge Time > 30 minutes Discharge/Advance Care Plan Health Problems: (1) Adjustment disorder with depressed mood Goals to promote your health * To prevent worsening of your condition and complications * To maintain your health at the optimal level Directions to meet your goals Take your medications as prescribed Follow your dietary instruction Follow activity as directed Keep your appointments as scheduled Take your immunizations and boosters as scheduled If your symptoms worsen call your PCP, if no PCP go to Urgent Care Center or Emergency Room For 30/01 questions related to your inpatient stay or results of tests pending at discharge, please contact Dr. Thiago Glynn at Smoking is Dangerous to Your Health. Avoid second hand smoking Thiago Glynn MD Feb 20, 2017 15:52
== END 2017-02-20 15:35 | disposition home or self-care (01) | DRG 881 ==
LOC: NEPJ 15:28 → NEDA 23:56 → H260 02-17 02:20
PROVIDERS: ADMIT Student in an Organized Health Care Education/Training Program; ATTEND Student in an Organized Health Care Education/Training Program
DX: F43.21 Adjustment disorder with depressed mood (principal); R45.851 Suicidal ideations; F41.9 Anxiety disorder, unspecified; F17.210 Nicotine dependence, cigarettes, uncomplicated; F90.9 Attention-deficit hyperactivity disorder, unspecified type; Y90.4 Blood alcohol level of 80-99 mg/100 ml; Z91.5 Personal history of self-harm; F12.90 Cannabis use, unspecified, uncomplicated; F10.10 Alcohol abuse, uncomplicated
CPT/HCPCS: 80048; 80053; 80061; 80307; 83036; 84439; 84443; 85025; Q0163

== ENCOUNTER 2017-03-04 15:54 | Emergency (ER) | payer OTHER ==
[~2017-03-04] VITALS: Ht 167.6 cm; Wt 83.0 kg
[~2017-03-04 15:54] MED LIST changes: +ADDE30TA PO; +ADDE30XR PO; +BUPR100T4 PO; +SERO200T PO
[2017-03-04 15:55] VITALS: BP 137/90; PULSE 99; RESP 20; TEMP 98.7; O2SAT 97
[2017-03-04] MEDS ORDERED: TRAZ50TA12 PO (16:13)
--- NOTE | 2017-03-04 17:35 | PD ---
HPI Chief Complaint: Medication Refill Request Time Seen by Provider: 17:28 Travel History International Travel<30 days: No Contact w/Intl Traveler<30days: No Traveled to known affect area: No History of Present Illness HPI 26-year-old male presents to the emergency department requesting refill on Seroquel and Wellbutrin. He has not taken his Wellbutrin since about mid week. He has not taken his Seroquel for about 3 weeks. He takes medications for depression, anxiety, bipolar disorder, ADHD. [facility] and has [facility] health appointment at the end of March. He is currently in the midst of changing primary care providers. He denies suicidal or homicidal ideations. He has no other medical complaints. No known allergies. Symptoms are mild in severity. No other modifying factors or associated signs and symptoms. History Past Medical Histgory Hx Cancer: No Social History Alcohol Use: Yes (ONCE A WEEK ) Tobacco Use: Yes (1 PPD) Allergies-Medications (Allergen,Severity, Reaction): Coded Allergies: No Known Allergies (Unverified , 03/04/17) Reported Meds & Prescriptions Reported Meds & Active Scripts Active Reported Trazodone (Trazodone HCl) 50 Mg Tab 50 Mg PO HS Seroquel (Quetiapine Fumarate) 200 Mg Tab 200 Mg PO DAILY Wellbutrin SR 12 HR (Bupropion HCl) 150 Mg Tab 150 Mg PO Q12HR Review of Systems Except as stated in HPI: all other systems reviewed are Neg Physical Exam Narrative GENERAL: Well-nourished, well-developed male patient, in no acute distress SKIN: Warm and dry. HEAD: Atraumatic. Normocephalic. EYES: Pupils equal and round. No scleral icterus. No injection or drainage. ENT: Mucosa pink and moist. Airway patent. NECK: Trachea midline. CARDIOVASCULAR: Regular rate. RESPIRATORY: No accessory muscle use. GASTROINTESTINAL: Flat. MUSCULOSKELETAL: No obvious deformities. No clubbing. No cyanosis. No edema. NEUROLOGICAL: Awake and alert. Oriented 3. No obvious cranial nerve deficits. Motor grossly within normal limits. Normal speech. PSYCHIATRIC: Appropriate mood and affect; insight and judgment normal. Data Data Last Documented VS Vital Signs Date Time Temp Pulse Resp B/P (MAP) Pulse Ox O2 Delivery O2 Flow Rate FiO2 03/04/17 15:55 98.7 99 20 137/90 (106) [address] [facility] Medical Screen Exam Complete: Yes Emergency Medical Condition: No Differential Diagnosis Medication refill Narrative Course 26-year-old male requesting refill on Seroquel and Wellbutrin. He does [facility]. Denies suicidal or homicidal ideations. Vital signs are stable and the patient is stable for outpatient follow-up and treatment. The patient has no urgent or emergent medical complaints. There is no emergent or urgent medical need at this time. I instructed the patient to follow up with their primary care provider. A medical screening exam was performed: At the time of evaluation the presenting medical condition was determined not to be of an emergent nature. The patient was given the option of receiving additional care, but declined. Patient was given options for additional community resources from which to obtain care. The Patient Has Been advised to seek medical attention for their presenting complaint. The patient has been advised to return to the ER at any time if an emergent condition develops. Primary Impression: Encounter for medical screening examination Condition: Stable Willa Dawson Mar 04, 2017 17:35
== END 2017-03-04 17:57 | disposition left against medical advice (07) ==
LOC: NEPK 15:54
DX: Z76.0 Encounter for issue of repeat prescription (principal)
CPT/HCPCS: 99281

== ENCOUNTER 2017-04-02 01:12 | Emergency (ER) | payer OTHER ==
[~2017-04-02 01:12] MED LIST changes: -ADDE30TA PO; -ADDE30XR PO; -BUPR100T4 PO; +TRAZ50TA12 PO
[2017-04-02 01:15] VITALS: BP 138/80; PULSE 103; RESP 18; TEMP 99.2; O2SAT 97
--- NOTE | 2017-04-02 02:35 | PD ---
HPI Chief Complaint: Medical Clearance Time Seen by Provider: 02:20 Travel History International Travel<30 days: No Contact w/Intl Traveler<30days: No Traveled to known affect area: No History of Present Illness HPI 26-year-old white male here for psych evaluation and treatment. States he used illicit drugs (heroin and hydromorphone) IV last night. He states that lives in a detox house but has relapsed. He is concerned that he will relapse before his appointment to start treatment for his drug use and so he came to the emergency department. [facility] Past Medical History ADHD: Yes Arthritis: No Asthma: No Anxiety: Yes Depression: Yes Heart Rhythm Problems: No Cancer: No Cardiovascular Problems: No High Cholesterol: No Chest Pain: No Congestive Heart Failure: No COPD: No Cerebrovascular Accident: No Diabetes: No Diminished Hearing: No GERD: No Genitourinary: No Headaches: No Hiatal Hernia: No Musculoskeletal: No Neurologic: No Psychiatric: Yes (depression, polysubstance abuse) Reproductive: No Respiratory: No Immunizations Current: Yes Migraines: No Seizures: No Sleep Apnea: No Ulcer: No Past Surgical History Abdominal Surgery: No Cardiac Surgery: No Ear Surgery: No Endocrine Surgery: No Eye Surgery: No Genitourinary Surgery: Yes (DIVISIONS OF RIGHT CREMASTER MUSCLE, RIGHT TESTEE SEWED TO SCROTUM) Gynecologic Surgery: No Oral Surgery: No Thoracic Surgery: No Social History Alcohol Use: No (ONCE A WEEK ) Tobacco Use: Yes (1.5 PPD) Substance Use: Yes (HEROIN LAST USED 04/01, BENZOS ) Allergies-Medications (Allergen,Severity, Reaction): Coded Allergies: No Known Allergies (Unverified , 03/04/17) Reported Meds & Prescriptions Reported Meds & Active Scripts Active Reported Trazodone (Trazodone HCl) 50 Mg Tab 50 Mg PO HS Seroquel (Quetiapine Fumarate) 200 Mg Tab 200 Mg PO DAILY Wellbutrin SR 12 HR (Bupropion HCl) 150 Mg Tab 150 Mg PO Q12HR Review of Systems Except as stated in HPI: all other systems reviewed are Neg Skin: Positive Lesions Physical Exam Narrative GENERAL: Well-developed well-nourished SKIN: Focused skin assessment warm/dry. Multiple lesions along left hand and wrist consistent with injection points HEAD: Atraumatic. Normocephalic. EYES: Pupils equal and round. No scleral icterus. No injection or drainage. ENT: No nasal bleeding or discharge. Mucous membranes pink and moist. NECK: Trachea midline. No JVD. CARDIOVASCULAR: Regular rate and rhythm. No murmur appreciated. RESPIRATORY: No accessory muscle use. Clear to auscultation. Breath sounds equal bilaterally. MUSCULOSKELETAL: No obvious deformities. No clubbing. No cyanosis. No edema. NEUROLOGICAL: Awake and alert. No obvious cranial nerve deficits. Motor grossly within normal limits. Normal speech. PSYCHIATRIC: Appropriate mood and affect; insight and judgment normal. Data Data Last Documented VS Vital Signs Date Time Temp Pulse Resp B/P (MAP) Pulse Ox O2 Delivery O2 Flow Rate FiO2 04/02/17 06:06 76 18 119/71 (87) 100 Room Air 04/02/17 01:15 99.2 Orders Orders Complete Blood Count With Diff (04/02/17 02:30) Basic Metabolic Panel (Bmp) (04/02/17 02:30) Psych Screen (04/02/17 02:30) Drug Screen, Random Urine (04/02/17 02:30) Alcohol (Ethanol) (04/02/17 02:30) Diet Regular Basic (04/02/17 Breakfast) Labs Laboratory Tests Test 04/02/17 03:00 White Blood Count 9.7 TH/MM3 Red Blood Count 5.82 MIL/MM3 Hemoglobin 16.6 GM/DL Hematocrit 49.0 % Mean Corpuscular Volume 84.2 FL Mean Corpuscular Hemoglobin 28.5 PG Mean Corpuscular Hemoglobin Concent 33.8 % Red Cell Distribution Width 12.8 % Platelet Count 294 TH/MM3 Mean Platelet Volume 7.9 FL Neutrophils (%) (Auto) 51.8 % Lymphocytes (%) (Auto) 37.6 % Monocytes (%) (Auto) 8.2 % Eosinophils (%) (Auto) 1.8 % Basophils (%) (Auto) 0.6 % Neutrophils # (Auto) 5.0 TH/MM3 Lymphocytes # (Auto) 3.7 TH/MM3 Monocytes # (Auto) 0.8 TH/MM3 Eosinophils # (Auto) 0.2 TH/MM3 Basophils # (Auto) 0.1 TH/MM3 CBC Comment DIFF FINAL Differential Comment Blood Urea Nitrogen 12 MG/DL Creatinine 1.22 MG/DL Random Glucose 80 MG/DL Calcium Level 9.0 MG/DL Sodium Level 138 MEQ/L Potassium Level 3.7 MEQ/L Chloride Level 102 MEQ/L Carbon Dioxide Level 30.9 MEQ/L Anion Gap 5 MEQ/L Estimat Glomerular Filtration Rate 71 ML/MIN Urine Opiates Screen POS Urine Barbiturates Screen NEG Urine Amphetamines Screen NEG Urine Benzodiazepines Screen NEG Urine Cocaine Screen NEG Urine Cannabinoids Screen NEG Ethyl Alcohol Level LESS THAN 3 MG/DL MDM Medical Decision Making Medical Screen Exam Complete: Yes Emergency Medical Condition: Yes Differential Diagnosis Polysubstance abuse disorder Narrative Course 26-year-old white male here for psych evaluation and treatment. States he used illicit drugs (heroin and hydromorphone) IV last night and has a history of multiple overdoses. He states that he lives in a detox house but has relapsed. He is concerned that he will relapse again before his detox program appointment next week. Denies SI/HI. [facility] for [facility]. He denies any other complaints or concerns. Labs are consistent with his claim of illicit drug use otherwise unremarkable. He will be evaluated by psych. Mental health screening discussed with the patient. Psychiatric screen ordered. Diagnosis Primary Impression: Polysubstance abuse Condition: Stable Chrissy Alegre Apr 02, 2017 02:35
[2017-04-02 03:33] LABS: BASOPHIL # 0.1 TH/MM3 (0-0.2); BASOPHIL % 0.6 % (0.0-2.0); EOSINOPHIL # 0.2 TH/MM3 (0-0.4); EOSINOPHIL % 1.8 % (0.0-4.0); HEMO FLAGS DIFF FINAL; LYMPH % 37.6 % (9.0-44.0); LYMPHOCYTE # 3.7 TH/MM3 (1.0-4.8); MEAN CELL VOLUME 84.2 FL (80.0-100.0); MEAN CORPUSCULAR HEMOGLOBIN 28.5 PG (27.0-34.0); MEAN CORPUSCULAR HGB CONC 33.8 % (32.0-36.0); MONO % 8.2 % (0.0-8.0); NEUT % 51.8 % (16.0-70.0); PLATELET COUNT 294 TH/MM3 (150-450); RED BLOOD COUNT 5.82 MIL/MM3 (4.50-5.90); RED CELL DISTRIBUTION WIDTH 12.8 % (11.6-17.2); WHITE BLOOD COUNT 9.7 TH/MM3 (4.0-11.0)
[2017-04-02 03:47] LABS: ANION GAP 5 MEQ/L (5-15); BICARBONATE 30.9 MEQ/L (21.0-32.0); BLOOD UREA NITROGEN 12 MG/DL (7-18); CHLORIDE 102 MEQ/L (98-107); GLOMERULAR FILTRATION RATE 71 ML/MIN (>89); POTASSIUM 3.7 MEQ/L (3.5-5.1); SODIUM (NA) 138 MEQ/L (136-145)
[2017-04-02 04:06] LABS: ALCOHOL LESS THAN 3 MG/DL (0-5)
[2017-04-02 06:06] VITALS: BP 119/71; PULSE 76; RESP 18; O2SAT 100
[2017-04-02 11:30] VITALS: BP 121/70; PULSE 75; RESP 17; O2SAT 99
--- NOTE | 2017-04-02 14:37 | PD ---
Data Data Last Documented VS Vital Signs Date Time Temp Pulse Resp B/P (MAP) Pulse Ox O2 Delivery O2 Flow Rate FiO2 04/02/17 14:35 04/02/17 11:30 75 17 99 Room Air 04/02/17 01:15 99.2 Orders Orders Complete Blood Count With Diff (04/02/17 02:30) Basic Metabolic Panel (Bmp) (04/02/17 02:30) Psych Screen (04/02/17 02:30) Drug Screen, Random Urine (04/02/17 02:30) Alcohol (Ethanol) (04/02/17 02:30) Diet Regular Basic (04/02/17 Breakfast) Diet Regular Basic (04/02/17 Lunch) Labs Laboratory Tests Test 04/02/17 03:00 White Blood Count 9.7 TH/MM3 Red Blood Count 5.82 MIL/MM3 Hemoglobin 16.6 GM/DL Hematocrit 49.0 % Mean Corpuscular Volume 84.2 FL Mean Corpuscular Hemoglobin 28.5 PG Mean Corpuscular Hemoglobin Concent 33.8 % Red Cell Distribution Width 12.8 % Platelet Count 294 TH/MM3 Mean Platelet Volume 7.9 FL Neutrophils (%) (Auto) 51.8 % Lymphocytes (%) (Auto) 37.6 % Monocytes (%) (Auto) 8.2 % Eosinophils (%) (Auto) 1.8 % Basophils (%) (Auto) 0.6 % Neutrophils # (Auto) 5.0 TH/MM3 Lymphocytes # (Auto) 3.7 TH/MM3 Monocytes # (Auto) 0.8 TH/MM3 Eosinophils # (Auto) 0.2 TH/MM3 Basophils # (Auto) 0.1 TH/MM3 CBC Comment DIFF FINAL Differential Comment Blood Urea Nitrogen 12 MG/DL Creatinine 1.22 MG/DL Random Glucose 80 MG/DL Calcium Level 9.0 MG/DL Sodium Level 138 MEQ/L Potassium Level 3.7 MEQ/L Chloride Level 102 MEQ/L Carbon Dioxide Level 30.9 MEQ/L Anion Gap 5 MEQ/L Estimat Glomerular Filtration Rate 71 ML/MIN Urine Opiates Screen POS Urine Barbiturates Screen NEG Urine Amphetamines Screen NEG Urine Benzodiazepines Screen NEG Urine Cocaine Screen NEG Urine Cannabinoids Screen NEG Ethyl Alcohol Level LESS THAN 3 MG/DL MDM Medical Record Reviewed: Yes Supervised Visit with STEPHANIE: Yes Narrative Course Patient arrives to the ER complaining of IV drug addiction. He believes he might regain IV drug abuse prior to admission to his planned detox facility. Since he has no suicidal ideation or homicidal ideation he is considered safe for discharge. He understands he can return any time. Diagnosis Primary Impression: Polysubstance abuse Disposition: 01 DISCHARGE HOME Condition: Stable Bill An MD Apr 02, 2017 14:37
== END 2017-04-02 14:35 | disposition left against medical advice (07) ==
LOC: NEPD 01:12 → NEDAMB 14:35
DX: F19.10 Other psychoactive substance abuse, uncomplicated (principal); F17.200 Nicotine dependence, unspecified, uncomplicated; Z79.899 Other long term (current) drug therapy; Z86.59 Personal history of other mental and behavioral disorders
CPT/HCPCS: 80048; 80307; 85025; 99283